=== PATIENT | female | born 2005 | race Caucasian/White ===

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

== ENCOUNTER 2024-12-01 17:32 | Emergency (ER) | payer SELFPAY ==
[2024-12-01 17:40] VITALS: BP 137/85; PULSE 109; TEMP 36.9; O2SAT 98; BMI 20.5
--- NOTE | 2024-12-01 18:28 | XRR_ITS ---
PROCEDURE INFORMATION: Exam: XR Chest Exam date and time: 12/01/2024 6:37 PM Age: 19 years old Clinical indication: Pain; Chest pressure; Additional info: Chest pain TECHNIQUE: Imaging protocol: Radiologic exam of the chest. Views: 1 view. COMPARISON: No relevant prior studies available. FINDINGS: Lungs: Unremarkable. No consolidation. Pleural spaces: Unremarkable. No pleural effusion. No pneumothorax. Heart/Mediastinum: Unremarkable. No cardiomegaly. Bones/joints: Unremarkable. XR/XR chest 1V portable [id number] IMPRESSION: No acute findings.
--- NOTE | 2024-12-01 18:29 | ECG_ITS ---
[facility]: 2024-12-01 Pat Name: Zahida Harrington Department: Room: Gender: Female Managing Supervisor: : 2005 Requested By: Wesley Araiza Order Number: [id number] Fox MD: Rustam Soto M.D. Measurements Intervals [place] Rate: 105 P: 71 W[place]: 126 QRS: 64 QRSD: 98 T: 38 QT: 331 QTc: 439 Interpretive Statements SINUS TACHYCARDIA LOW QRS VOLTAGE IN PRECORDIAL LEADS [QRS DEFLECTION < 1.0 mV IN CHEST LEADS] NONSPECIFIC ST & T-WAVE ABNORMALITY ABNORMAL RHYTHM ECG INTERPRETATION BASED ON A DEFAULT AGE OF 40 YEARS No previous ECG available for comparison Electronically Signed On 12-03-2024 23:29:38 CDT by Rustam Soto M.D. [id number]
[2024-12-01 18:52] VITALS: BP 117/74; PULSE 63; RESP 14; O2SAT 99
--- NOTE | 2024-12-01 19:17 | W.ED.EXTPRO ---
HPI - Extremity Problem General: Chief complaint: Extremity Injury, Upper Stated complaint: Spider Bite Time Seen by Provider: 12/01/24 19:08 History of Present Illness: 19-year-old female presents emergency room with complaint of what she describes as a spider bite on her finger. She also is complaining of some intermittent shortness of breath and slight cough. She mentioned to the nurses note that she had abdominal pain however she never did mention this to me she did mention both her finger and her breathing issues. Patient does admit to vaping regularly. She denies any mopped assist no history of DVT or PE no chest pain. Associated symptoms: Reports chest pain; Deny fever(s) or rash Related Data Previous Rx's ?Medication ?Instructions ?Recorded acyclovir 400 mg tablet 400 mg PO TID #21 tabs 12/01/24 albuterol sulfate 90 mcg/actuation 2 inh inhalation Q4H PRN shortness 12/01/24 aerosol inhaler of breath or wheezing #18 grams Allergies Allergy/AdvReac Type Severity Reaction Status Date / Time No Known Allergies Allergy Verified 12/01/24 17:49 Review of Systems Const: Denies: fever(s) or chills Card: Reports: chest pain Resp: Reports: dyspnea and wheezing; Denies: productive cough or chest congestion : Denies: dysuria, urinary frequency or urinary urgency Musc: Denies: neck pain or back pain Skin/Breast: Denies: rash Physical Exam Const: COMMON NORMALS: no acute distress GENERAL APPEARANCE: cooperative and comfortable ORIENTATION/CONSCIOUSNESS: Yes awake, Yes oriented to person, Yes oriented to place and Yes oriented to time HENMT: COMMON NORMALS: normocephalic, atraumatic and hearing grossly normal bilaterally HEAD & SCALP: normocephalic and atraumatic Resp: COMMON NORMALS: normal respiratory effort, No retractions, No use of accessory muscles and clear to auscultation bilaterally AUSCULTATION: clear to auscultation bilaterally Cardio: COMMON NORMALS: regular rate, regular rhythm and No murmurs present (Cardio) RATE: regular rate RHYTHM: regular rhythm GI: COMMON NORMALS: Soft to palpation and No hepatosplenomegaly present AUSCULTATION: Yes normoactive bowel sounds PALPATION: Yes Soft to palpation, No Tenderness to palpation present (GI), No Guarding due to palpation present (GI) and Yes No hepatosplenomegaly present Extremity: COMMON NORMALS: normal to inspection, capillary refill normal, no clubbing, cyanosis or edema, no calf tenderness and no pedal edema OTHER: Examination of the left index finger there is a herpetic rita with vesicles over the cuticle. Epitrochlear lymph nodes. No proximal lymphangitis Neuro: SENSORIUM/ORIENTATION: Yes oriented to person, Yes oriented to place and Yes oriented to time Skin: COMMON NORMALS: no rashes or lesions noted GENERAL SKIN EXAM: no rashes or lesions noted Course Vital Signs: Vital signs: Vital Signs Temperature 98.4 F 12/01/24 17:40 Pulse Rate 58 L 12/01/24 19:28 Respiratory Rate 14 12/01/24 18:52 Blood Pressure 105/71 12/01/24 19:28 Pulse Oximetry 97 12/01/24 19:28 Oxygen Delivery Me thod Room Air 12/01/24 18:52 MDM - Extremity (Nontraumatic) Medical Decision Making Herpetic rita the finger was started on acyclovir. For her wheezing her lungs sound good at this time she reports wheezing shortness of breath encouraged her to stop vaping give albuterol to use as needed and follow-up with her primary care doctor. Chest x-ray was unremarkable. Lab Data Radiology Impressions Chest X-Ray 12/01/24 18:28 IMPRESSION: No acute findings. All radiology interpretation(s) finalized by discharge Discharge Plan Discharge Patient Disposition: Home Clinical Impression: Herpetic rita, Dyspnea Condition: Stable Prescriptions: New acyclovir 400 mg tablet 400 mg PO TID Qty: 21 0RF albuterol sulfate 90 mcg/actuation HFA aerosol inhaler 2 inh INHALATION Q4H PRN (Reason: shortness of breath or wheezing) Qty: 18 0RF Discharge Orders: Discharge ED (Routine); Ordered 12/01/24 Ordered By: Yonas Ruelas Discharge Diet: Usual diet Discharge Activity: Increase activity as tolerated Patient Instructions: Opioid Safety, Pain Management Activity Restrictions/Additional Instructions: Thank you for choosing [facility] for your healthcare needs today. It is very important that you follow up as instructed or that you return to the Emergency Department should you have concerns or if your condition changes or worsens in any way. You are seen in the emergency room with complaints of shortness of breath chest x-ray appears normal. Suspect this is related to the vaping. Will give you albuterol to use as needed recommend you stop vaping or significantly decrease the use. You are also noted to have a herpetic rita. Recommend that you start acyclovir 1 tablet 3 times a day for 1 week. Print Language: Luxembourger Coding Level of Care Code ED Bowling Ball Engraver for Du Tamayo
[2024-12-01 19:28] VITALS: BP 105/71; PULSE 58; O2SAT 97
== END 2024-12-01 19:35 | disposition home or self-care (01) ==
PROVIDERS: Emergency Provider Family Medicine
DX: B00.89 Other herpesviral infection (principal); R06.00 Dyspnea, unspecified
CPT/HCPCS: 71045; 93005; 99284

== ENCOUNTER → 2025-05-05 08:04 | Outpatient (BNVA) | payer OTHER, SELFPAY | PROVIDERS: Visit Provider Nurse Practitioner Women's Health | DX: N92.6 Irregular menstruation, unspecified (principal) | CPT/HCPCS: 81025; 83036; 84146; 84439; 84443; 84702 ==

== ENCOUNTER 2025-05-21 00:55 | Emergency (ER) | payer OTHER, BC, MEDICAID, SELFPAY ==
[2025-05-21 01:00] VITALS: BP 143/86; PULSE 90; RESP 16; TEMP 36.8; O2SAT 99; BMI 20.8
[2025-05-21 01:08] VITALS: BP 143/86; PULSE 90; RESP 16; TEMP 36.8; O2SAT 99
--- NOTE | 2025-05-21 01:31 | ED_ITS ---
HPI - Fall General: Chief Complaint: Fall Stated Complaint: Tooth pain LT side (8wks ) Time Seen by Provider: 05/21/25 01:14 History of Present Illness: 20yo F w/cc of pain of tooth #[address] arted yesterday. Pain is severe. She has not had fever or malaise. She reports mild subjective facial swelling. The tooth was broken in an accident some time back and she's not been able to see the dentist. Of note, she is 8wks but denies any abdominal pain, vomiting, dysuria, vaginal bleeding or abnormal discharge. Related Data Home Medications ?Medication ?Instructions ?Recorded ?Confirmed [id number] 400 mcg-om3 35 mg-dha 25 tab PO DAILY 5 05/20/25 mg-epa 5 mg-fish oil chewable tablet Previous Rx's ?Medication ?Instructions ?Recorded albuterol sulfate 90 mcg/actuation 2 inh inhalation Q4 H PRN shortness 12/01/24 aerosol inhaler of breath or wheezing #18 gr ams amoxicillin 875 mg-potassium 1 tab PO BID 7 days #14 t abs 05/21/25 clavulanate 125 mg tablet oxycodone 5 mg tablet 5 mg PO Q8H PRN severe pain (scale 05/21/25 score 7-10) 3 days #9 tabs Allergies Allergy/AdvReac Type Severity Reaction Status Date / Time No Known Allergies Allergy Verified 05/20/25 07:44 [facility] ED PFSH: Medical History (Updated 05/21/25 @ 01:48 by Dorothy Ruiz MD) No pertinent past medical history neghx: htn, dm, thyroid, dvt/pe PCP: none Epilepsy Depression Anxiety Surgical History No pertinent past surgical history Family History Grandmother Breast cancer Hyperlipidemia Hypertension Thyroid disease Stroke Diabetes Grandfather Heart disease Hyperlipidemia Hypertension Diabetes Social History Smoking and tobacco/nicotine status: current every day tobacco/nicotine user e- cigarettes Alcohol intake: former Female Reproductive History: Date of last menstrual period: 02/20/25 Physical Exam Narrative: EXAM NARRATIVE: Vital signs were reviewed. Patient is alert and oriented. Patient is breathing comfortably, no increased WOB or accessory muscle use. SpO2 is above 95% on RA. No hypotension or tachycardia. Patient is moving all extremities, no deformity or gross injury. Tooth #10 is fractured and discolored. It is exquisitely tender to percussion. There is no obvious abscess. Course Vital Signs: Vital signs: Vital Signs Temperature 98.3 F 05/21/25 01:08 Pulse Rate 90 05/21/25 01:08 Respiratory Rate 16 05/21/25 01:08 Blood Pressure 143/86 05/21/25 01:08 Pulse Oximetry 99 05/21/25 01:08 Oxygen Delivery Me thod Room Air 05/21/25 01:08 MDM - Fall Medical Decision Making 20-year-old female presents with a chief complaint of dental pain. Differential diagnosis includes, vomiting, fractured tooth, dental caries, periapical abscess, gingival abscess, dental infection, other. On exam she is in with stable nontoxic-appearing. Of note, patient is . Patient is in severe pain and is tearful. She has been taking Tylenol without relief. She will be started on Augmentin and was treated for pain with oxycodone. She was treated w/dental block. She will try to see a dentist tomorrow. No radiology studies performed this visit Discharge Plan Discharge Patient Disposition: Home Clinical Impression: Abscess, dental, Condition: Stable Prescriptions: New oxycodone 5 mg tablet 5 mg PO Q8H PRN (Reason: severe pain (scale score 7-10)) 3 Days Qty: 9 0RF amoxicillin-pot clavulanate 875-125 mg tablet 1 tab PO BID 7 Days Qty: 14 0RF No Action [id number] oil 400 mcg-35 mg -25 mg-5 mg tablet,chewable PO DAILY albuterol sulfate 90 mcg/actuation HFA aerosol inhaler 2 inh INHALATION Q4H PRN (Reason: shortness of breath or wheezing) Qty: 18 0RF Discharge Orders: Discharge ED (Routine); Ordered 05/21/25 Ordered By: Dorothy Ruiz Patient Instructions: Dental Abscess (ED), Opioid Safety, Pain Management, Patient Portal & Jm Instructions Activity Restrictions/Additional Instructions: Start taking your antibiotics as prescribed. Take 500 to 1000 mg of Tylenol every 8 hours for pain. You may also use topical pain treatments such as Orajel. For severe and uncontrollable pain, you may take a dose of oxycodone. Continue to monitor your condition closely at home. If your condition worsens or additional concerns arise, please return to the emergency department for reassessment. Please see a dentist as soon as possible. Print Language: Chinese Coding Level of Care Code ED Program Supervisor for Du Tamayo
[2025-05-21 01:41] VITALS: RESP 18
[2025-05-21] MEDS: oxyCODONE 5 mg IR Tab/Cap PO (01:41)
[2025-05-21] MEDS: BUPivacaine 0.5% INJ 10 mL INJECTION (01:47)
[2025-05-21 02:10] VITALS: BP 121/71; PULSE 74; RESP 18; O2SAT 99
== END 2025-05-21 02:13 | disposition home or self-care (01) ==
PROVIDERS: Emergency Provider Emergency Medicine
DX: O99.611 Diseases of the digestive system complicating pregnancy, first trimester (principal); K04.7 Periapical abscess without sinus; Z3A.08 8 weeks gestation of pregnancy; F17.290 Nicotine dependence, other tobacco product, uncomplicated
CPT/HCPCS: 99285; J3490; J9999

== ENCOUNTER → 2025-06-17 14:29 | Outpatient (BNVA) | payer OTHER, SELFPAY | PROVIDERS: Visit Provider Nurse Practitioner Women's Health | DX: Z34.91 Encounter for supervision of normal pregnancy, unspecified, first trimester (principal); Z3A.12 12 weeks gestation of pregnancy; F17.290 Nicotine dependence, other tobacco product, uncomplicated; F12.90 Cannabis use, unspecified, uncomplicated | CPT/HCPCS: 80307; 84315; 85025; 86592; 86762; 86803; 86850; 86900; 87086; 87340; 87806 ==

== ENCOUNTER → 2025-06-30 10:52 | Outpatient (BNVA) | payer OTHER, BC, MEDICAID, SELFPAY | PROVIDERS: Visit Provider Obstetrics & Gynecology | DX: Z34.91 Encounter for supervision of normal pregnancy, unspecified, first trimester (principal); Z3A.13 13 weeks gestation of pregnancy; Z12.4 Encounter for screening for malignant neoplasm of cervix | CPT/HCPCS: 84315; 87491; 87591; 87661; 88175 ==

== ENCOUNTER → 2025-07-28 13:00 | Outpatient (BNVA) | payer OTHER, BC, MEDICAID, SELFPAY | PROVIDERS: Visit Provider Obstetrics & Gynecology | DX: Z34.82 Encounter for supervision of other normal pregnancy, second trimester (principal); Z3A.17 17 weeks gestation of pregnancy; F17.290 Nicotine dependence, other tobacco product, uncomplicated; F12.90 Cannabis use, unspecified, uncomplicated | CPT/HCPCS: 82105; 84315 ==